=== PATIENT | female | born 1980 | race Hispanic/Latino ===

== ENCOUNTER 2016-10-15 10:56 | Emergency (ER) | payer MEDICAID ==
[2016-10-15 11:56] VITALS: BP 147/102
== END 2016-10-15 13:01 | disposition left against medical advice (07) ==
LOC: ED 10:56
DX: J02.9 Acute pharyngitis, unspecified (principal); R05 Cough; R51 Headache; F17.200 Nicotine dependence, unspecified, uncomplicated; Z53.21 Procedure and treatment not carried out due to patient leaving prior to being seen by health care provider

== ENCOUNTER 2016-11-07 15:32 | Emergency (ER) | payer MEDICAID ==
[2016-11-07 15:49] VITALS: BP 140/96
[2016-11-07] MEDS ORDERED: TETRACAINE 0.5% OU PRN (16:31)
[2016-11-07] MEDS ORDERED: FUL-GLO OP ONE (16:31)
--- NOTE | 2016-11-07 17:17 | Emergency Department Report ---
ED Eye Problem HPI - General Chief complaint: Eye Problems Stated complaint: EYE PAIN Time Seen by Provider: 11/07/16 17:15 Source: patient Mode of arrival: Ambulatory Limitations: No Limitations - History of Present Illness Initial comments: Patient here reports that she slept with her colored contacts last night. She said that she doesn't usually wear contact for vision. She said that when she woke up she took them out and she is having eye irritation to both eyes, sensitivity to light. She states she tried eyedrops without any relief. Reports pain is 10 out of 10 to both eyes. Denies any difficulty seeing. Past medical history is neuropathy dependent edema, GERD. Past surgical history is appendectomy and tubal ligation. She reports foreign body sensation with scratchy feeling side. She states that she took Tylenol without any relief. Tetanus vaccine is not up-to-date. MD chief complaint: eye pain, eye redness, eye injury -: Last night Onset Description: other (Contacts) Location: both eyes Place: home If Injury: other (Contacts) Eye Symptoms: burning, redness, pain, foreign body sensation, photophobia Severity: severe Severity scale (0 -10): 10 If Pain, Quality: burning, other (irritated) Consistency: constant Context: contact lens use Associated Symptoms: denies: headache, neck pain, nausea/vomiting, cough, rhinorrhea, shortness of breath Treatments Prior to Arrival: irrigated eye, OTC eye drops - Related Data Patient Tetanus UTD: No Previous Rx's Medication Instructions Recorded Last Taken Type Azithromycin [Zithromax Z-WILBER] 250 mg PO DAILY #6 tab 03/06/16 Unknown Rx Cetirizine HCl [ZyrTEC] 10 mg PO QDAY #30 capsule 03/06/16 Unknown Rx Fluticasone [Flonase] 1 spray NS QDAY #1 bottle 03/06/16 Unknown Rx Ibuprofen [Motrin] 800 mg PO Q8HR PRN #15 tablet 03/06/16 Unknown Rx predniSONE [Deltasone] 50 mg PO QDAY #5 tab 03/06/16 Unknown Rx Acetaminophen/Codeine [Tylenol 1 tab PO Q6H PRN #12 tab 11/07/16 Unknown Rx /Codeine # 3 tab] Gentamicin 0.3% Ophth Soln 2 drops OP Q4H #1 bottle 11/07/16 Unknown Rx Allergies Allergy/AdvReac Type Severity Reaction Status Date / Time No Known Allergies Allergy Verified 03/06/16 16:13 ED Review of Systems ROS: Stated complaint: EYE PAIN Other details as noted in HPI Comment: All other systems reviewed and negative Constitutional: no symptoms reported Eyes: eye pain, other (irritation from contacts). denies: eye discharge, vision change ENT: denies: ear pain, throat pain, dental pain, hearing loss, congestion Respiratory: no symptoms reported Cardiovascular: denies: chest pain, palpitations, edema, syncope Gastrointestinal: denies: abdominal pain, nausea, vomiting Musculoskeletal: denies: back pain, arthralgia Skin: denies: rash Neurological: denies: headache, numbness, paresthesias, confusion, abnormal gait , vertigo ED Past Medical Hx - Past Medical History Previous Medical History?: Yes Hx GERD: Yes Additional medical history: Neuropathy, dependent edema to lower extremities - Surgical History Past Surgical History?: Yes Hx Appendectomy: Yes Additional Surgical History: Tubal ligation - Family History Family history: hypertension - Social History Smoking Status: Current Every Day Smoker Substance Use Type: Alcohol Other Social History: Lives with family - Medications Home Medications: Home Medications Medication Instructions Recorded Confirmed Last Taken Type Azithromycin [Zithromax Z-WILBER] 250 mg PO DAILY #6 tab 03/06/16 Unknown Rx Cetirizine HCl [ZyrTEC] 10 mg PO QDAY #30 capsule 03/06/16 Unknown Rx Fluticasone [Flonase] 1 spray NS QDAY #1 bottle 03/06/16 Unknown Rx Ibuprofen [Motrin] 800 mg PO Q8HR PRN #15 tablet 03/06/16 Unknown Rx predniSONE [Deltasone] 50 mg PO QDAY #5 tab 03/06/16 Unknown Rx Acetaminophen/Codeine [Tylenol 1 tab PO Q6H PRN #12 tab 11/07/16 Unknown Rx /Codeine # 3 tab] Gentamicin 0.3% Ophth Soln 2 drops OP Q4H #1 bottle 11/07/16 Unknown Rx ED Physical Exam - General Limitations: No Limitations General appearance: alert, in no apparent distress - Head Head exam: Present: atraumatic, normocephalic, normal inspection - Eye Eye exam: Present: PERRL, EOMI, conjunctival injection (mild). Absent: normal appearance, scleral icterus, nystagmus, periorbital swelling Pupils: Present: normal accommodation - Expanded Eye Exam Expanded Eyelids: Normal Inspection: Right (Bilateral) Pupils: Regular, Round: Bilateral, Reactive: Bilateral Sclera/Conjunctival: Injection: Bilateral (mild) Anterior chamber: Normal Inspection: Bilateral Posterior chamber: Normal Inspection: Bilateral Visual acuity (R) = 20/: 40 Visual acuity (L) = 20/: 40 (20/25 both eyes) With correction: No - ENT ENT exam: Present: normal exam, normal orophraynx, mucous membranes moist - Neck Neck exam: Present: normal inspection, full ROM. Absent: tenderness, lymphadenopathy - Respiratory Respiratory exam: Present: normal lung sounds bilaterally. Absent: respiratory distress, chest wall tenderness - Cardiovascular Cardiovascular Exam: Present: normal rhythm, tachycardia, normal heart sounds - Extremities Exam Extremities exam: Present: normal inspection, full ROM, normal capillary refill. Absent: tenderness, pedal edema, joint swelling, calf tenderness - Back Exam Back exam: Present: normal inspection, full ROM. Absent: tenderness, rash noted - Neurological Exam Neurological exam: Present: alert, oriented X3, normal gait, reflexes normal. Absent: motor sensory deficit - Psychiatric Psychiatric exam: Present: normal affect, normal mood - Skin Skin exam: Present: warm, dry, intact, normal color. Absent: rash ED Course Vital Signs 11/07/16 11/07/16 15:46 18:05 Temperature 97.8 F Pulse Rate 103 H 84 Respiratory 16 Rate Blood Pressure 140/96 O2 Sat by Pulse 97 Oximetry - Reevaluation(s) Reevaluation #1: 11/07/16 18:13 Patient received boostrix 0.5 mls and Motrin 800 mg po . See procedure for zamarripa lamp testing. - Procedure Description Procedures done: Procedure: 2 drops tetracaine instilled in both eyes followed by fluorescein stain in and both eyes examined under Wood lamp patient with very minute corneal abrasion to both cornea. This vaccine updated. Both eyes flushed with normal saline. Patient voices relief of pain after tetracaine instilled. She had initial burning in that after a few seconds she said her pain is better. See vital signs record for visual acuity testing. Patient instructed to refrain from using contacts in her eye and that she will need to follow up with eye doctor. I instructed her to wear eyeglasses if needed and sunglasses when she is in the front to provide protection. ED Medical Decision Making - Medical Decision Making ED course: Patient and here reports that she has bilateral eye irritation and that she slept in her contact lenses which is not seen in but for cosmetic purposes. She said her eyes started hurting in and she took contacts out but it feels irritated and feels like foreign body sensation in her eyes. With lab testing done. Tetracaine 2 drops instilled in both eyes, fluorescein stain and both eyes visualized under Zamarripa lamp with small corneal abrasion to both eyes. has minimal redness to the sclera and conjunctiva. Visual acuity is 20/ 20 both eyes, 20/40 OD and 20/40 OS. Tetanus vaccine updated. Patient was given Boostrix 0.5 ml to update tetanus and Motrin 800 mg by mouth for eye pain. I discussed diagnosis and treatment plan the patient and told her that she will need to follow up with furnace combination analyst for further management of corneal abrasions to both eyes. Justice instructed to wear sunglasses when she is outside to prevent photophobia and to avoid putting contacts in her eyes. Patient discharged home with prescription for gentamicin ophthalmic drops and Tylenol # 3 . Patient with diagnosis of bilateral corneal abrasion Critical care attestation.: If time is entered above; I have spent that time in minutes in the direct care of this critically ill patient, excluding procedure time. ED Disposition Clinical Impression: Pain of both eyes Corneal abrasion due to contact lens Qualifiers: Laterality: bilateral Qualified Code(s): H18.823 - Corneal disorder due to contact lens, bilateral Disposition: DC-01 TO HOME OR SELFCARE Is pt being admited?: No Does the pt Need Aspirin: No Condition: Stable Instructions: Corneal Abrasion (ED) Additional Instructions: Follow-up with furnace combination analyst status post corneal abrasion. Please use antibiotic eyedrops as instructed Wear sunglasses when outdoors Please refrain from using contacts until you're cleared by your furnace combination analyst Prescriptions: Acetaminophen/Codeine [Tylenol /Codeine # 3 tab] 1 tab PO Q6H PRN #12 tab PRN Reason: Pain Gentamicin 0.3% Ophth Soln 2 drops OP Q4H #1 bottle Referrals: GIULIANA CROWE MD [Primary Care Provider] - 3-5 Days DEMETRIA YU MD [Staff Physician] - 09/19/17 Forms: Accompanied Note, Work/School Release Form(ED)
[2016-11-07] MEDS ORDERED: MOTRIN PO ONE (17:23)
[2016-11-07] MEDS ORDERED: BOOSTRIX IM ONE (17:23)
== END 2016-11-07 18:32 | disposition home or self-care (01) ==
LOC: ED 15:32
DX: H18.823 Corneal disorder due to contact lens, bilateral (principal); K21.9 Gastro-esophageal reflux disease without esophagitis; F17.200 Nicotine dependence, unspecified, uncomplicated; Z98.51 Tubal ligation status; Z90.49 Acquired absence of other specified parts of digestive tract
CPT/HCPCS: 90715; 99283

== ENCOUNTER 2017-01-24 01:14 | Emergency (ER) | payer MEDICAID ==
[2017-01-24 01:58] VITALS: BP 151/82
[2017-01-24] MEDS ORDERED: MOTRIN PO ONE (04:01)
[2017-01-24 04:28] LABS: Mean Corpuscular HGB Conc 30 % (30-34); Platelet Count 382 K/mm3 (140-440); Red Blood Count 4.65 M/mm3 (3.65-5.03); Red Cell Distribution Width 18.2 % (13.2-15.2); White Blood Count 10.3 K/mm3 (4.5-11.0)
--- NOTE | 2017-01-24 04:28 | XRay Report ---
FINAL REPORT PROCEDURE: XR CHEST ROUTINE 2V TECHNIQUE: PA and lateral chest radiographs were obtained. CPT 52863 HISTORY: Productive cough yellow, fever COMPARISON: No prior studies are available for comparison. FINDINGS: Heart: Normal. Mediastinum/Vessels: Normal. Lungs/Pleural space: Lungs are clear and expanded. There are no infiltrates, effusions or pneumothoraces.. Bony thorax: No acute osseous abnormality. Other: IMPRESSION: Normal examination.
[2017-01-24 04:36] LABS: Hematocrit 32.3 % (30.3-42.9); Mean Corpuscular Hemoglobin 21 pg (28-32); Mean Corpuscular Volume 69 fl (79-97)
[2017-01-24 04:37] LABS: Hemoglobin 9.7 gm/dl (10.1-14.3)
--- NOTE | 2017-01-24 04:40 | Emergency Department Report ---
- General Chief Complaint: Upper Respiratory Infection Stated Complaint: FEVER,COUGH,RIGHT LEG PAIN Time Seen by Provider: 01/24/17 03:20 Source: patient Mode of arrival: Ambulatory Limitations: No Limitations - History of Present Illness Initial Comments: 36-year-old female past medical history obesity, chronic lower extremity edema and neuropathy, smoker presents with complaint of 3 days of cough. Also complaining of one month of persistent right lower extremity thigh pain. Patient is awake alert and oriented 3 not appear to be in acute distress. No audible wheezing or stridor. Ambulatory without assistance. States that she has had persistent right upper thigh aching for 1 month. Denies any direct trauma denies any new exercises. States it is intermittent. Denies any fevers chills increased urinary frequency dysuria or foul-smelling urine. Denies any flank pain. States she has dry cough. Patient is a smoker. Onset/Timin -: month(s) Severity: moderate Severity scale (0 -10): 6 Quality: aching Consistency: intermittent Improves With: nothing Worsens With: nothing Associated Symptoms: cough - Related Data Previous Rx's Medication Instructions Recorded Last Taken Type Azithromycin [Zithromax Z-WILBER] 250 mg PO DAILY #6 tab 03/06/16 Unknown Rx Cetirizine HCl [ZyrTEC] 10 mg PO QDAY #30 capsule 03/06/16 Unknown Rx Fluticasone [Flonase] 1 spray NS QDAY #1 bottle 03/06/16 Unknown Rx Ibuprofen [Motrin] 800 mg PO Q8HR PRN #15 tablet 03/06/16 Unknown Rx predniSONE [Deltasone] 50 mg PO QDAY #5 tab 03/06/16 Unknown Rx Acetaminophen/Codeine [Tylenol 1 tab PO Q6H PRN #12 tab 11/07/16 Unknown Rx /Codeine # 3 tab] Gentamicin 0.3% Ophth Soln 2 drops OP Q4H #1 bottle 11/07/16 Unknown Rx ALBUTEROL Inhaler [ProAir HFA 2 puff IH QID PRN #1 inhalation 01/24/17 Unknown Rx Inhaler] Benzonatate [Tessalon Perles] 100 mg PO Q8HR PRN #30 capsule 01/24/17 Unknown Rx Naproxen [Naprosyn] 500 mg PO BID PRN #30 tablet 01/24/17 Unknown Rx Phenylephrine/Dm/Acetaminop/GG 10 ml PO Q6H PRN #1 liquid 01/24/17 Unknown Rx [Mucinex Klhd-Rdx-Svlieryqrg Lq] Allergies Allergy/AdvReac Type Severity Reaction Status Date / Time No Known Allergies Allergy Verified 03/06/16 16:13 ED Review of Systems ROS: Stated complaint: FEVER,COUGH,RIGHT LEG PAIN Other details as noted in HPI Constitutional: denies: chills, fever Eyes: denies: eye pain, eye discharge, vision change ENT: denies: ear pain, throat pain Respiratory: cough. denies: shortness of breath, wheezing Cardiovascular: denies: chest pain, palpitations Endocrine: no symptoms reported Gastrointestinal: denies: abdominal pain, nausea, diarrhea Genitourinary: denies: urgency, dysuria, discharge Musculoskeletal: as per HPI. denies: back pain, joint swelling, arthralgia Skin: denies: rash, lesions Neurological: denies: headache, weakness, paresthesias Psychiatric: denies: anxiety, depression Hematological/Lymphatic: denies: easy bleeding, easy bruising ED Past Medical Hx - Past Medical History Previous Medical History?: Yes Hx GERD: Yes Additional medical history: Neuropathy, dependent edema to lower extremities - Surgical History Past Surgical History?: Yes Hx Appendectomy: Yes Additional Surgical History: Tubal ligation - Social History Smoking Status: Current Every Day Smoker Substance Use Type: None - Medications Home Medications: Home Medications Medication Instructions Recorded Confirmed Last Taken Type Azithromycin [Zithromax Z-WILBER] 250 mg PO DAILY #6 tab 03/06/16 Unknown Rx Cetirizine HCl [ZyrTEC] 10 mg PO QDAY #30 capsule 03/06/16 Unknown Rx Fluticasone [Flonase] 1 spray NS QDAY #1 bottle 03/06/16 Unknown Rx Ibuprofen [Motrin] 800 mg PO Q8HR PRN #15 tablet 03/06/16 Unknown Rx predniSONE [Deltasone] 50 mg PO QDAY #5 tab 03/06/16 Unknown Rx Acetaminophen/Codeine [Tylenol 1 tab PO Q6H PRN #12 tab 11/07/16 Unknown Rx /Codeine # 3 tab] Gentamicin 0.3% Ophth Soln 2 drops OP Q4H #1 bottle 11/07/16 Unknown Rx ALBUTEROL Inhaler [ProAir HFA 2 puff IH QID PRN #1 inhalation 01/24/17 Unknown Rx Inhaler] Benzonatate [Tessalon Perles] 100 mg PO Q8HR PRN #30 capsule 01/24/17 Unknown Rx Naproxen [Naprosyn] 500 mg PO BID PRN #30 tablet 01/24/17 Unknown Rx Phenylephrine/Dm/Acetaminop/GG 10 ml PO Q6H PRN #1 liquid 01/24/17 Unknown Rx [Mucinex Igup-Kgt-Klwczowxbx Lq] ED Physical Exam - General Limitations: No Limitations General appearance: alert, in no apparent distress - Head Head exam: Present: atraumatic, normocephalic - Eye Eye exam: Present: normal appearance, PERRL, EOMI - ENT ENT exam: Present: normal exam, mucous membranes moist - Neck Neck exam: Present: normal inspection - Respiratory Respiratory exam: Present: normal lung sounds bilaterally. Absent: respiratory distress - Cardiovascular Cardiovascular Exam: Present: regular rate, normal rhythm. Absent: systolic murmur, diastolic murmur, rubs, gallop - GI/Abdominal GI/Abdominal exam: Present: soft, normal bowel sounds - Extremities Exam Extremities exam: Present: normal inspection - Expanded Lower Extremity Exam Right Upper Leg exam: Present: normal inspection (right thigh region soft palpation. No significant tenderness no erythema no palpable fluctuance no tenseness of skin.), full ROM Knee exam: Present: normal inspection, full ROM Lower Leg exam: Present: normal inspection, full ROM Ankle exam: Present: normal inspection, full ROM Foot/Toe exam: Present: normal inspection, full ROM Neuro vascular tendon exam: Present: no vascular compromise (distal dorsalis pedis and posterior tibial pulses are intact) Gait: Positive: observed and normal - Back Exam Back exam: Present: normal inspection - Neurological Exam Neurological exam: Present: alert, oriented X3, CN II-XII intact, normal gait - Psychiatric Psychiatric exam: Present: normal affect, normal mood - Skin Skin exam: Present: warm, dry, intact, normal color. Absent: rash ED Course Vital Signs 01/24/17 01:52 Temperature 98.3 F Pulse Rate 89 Blood Pressure 151/82 O2 Sat by Pulse 100 Oximetry ED Medical Decision Making - Lab Data Result diagrams: 01/24/17 04:06 01/24/17 04:06 - Medical Decision Making A/P: Chronic right thigh pain, upper respiratory infection 1-naproxen, Mucinex, Tessalon Perles when necessary 2-patient ambulatory, neurovascular exam right lower extremity within normal limits. Patient ambulatory without assistance. 3-BMP, CBC, d-dimer unremarkable. Chest x-ray unremarkable 4-follow-up with primary care and orthopedics. Critical care attestation.: If time is entered above; I have spent that time in minutes in the direct care of this critically ill patient, excluding procedure time. ED Disposition Clinical Impression: Muscle ache of extremity Upper respiratory infection Qualifiers: URI type: unspecified viral URI Qualified Code(s): J06.9 - Acute upper respiratory infection, unspecified; B97.89 - Other viral agents as the cause of diseases classified elsewhere; B97.89 - Other viral agents as the cause of diseases classified elsewhere Disposition: DC-01 TO HOME OR SELFCARE Is pt being admited?: No Does the pt Need Aspirin: No Condition: Stable Instructions: Musculoskeletal Pain (ED), Viral Syndrome (ED), Cold Symptoms (ED ), Upper Respiratory Infection (ED) Prescriptions: ALBUTEROL Inhaler [ProAir HFA Inhaler] 2 puff IH QID PRN #1 inhalation PRN Reason: Shortness Of Breath Benzonatate [Tessalon Perles] 100 mg PO Q8HR PRN #30 capsule PRN Reason: Cough Naproxen [Naprosyn] 500 mg PO BID PRN #30 tablet PRN Reason: Pain Phenylephrine/Dm/Acetaminop/GG [Mucinex Tzpo-Uoi-Srhqyphvqu Lq] 10 ml PO Q6H PRN #1 liquid PRN Reason: Cough Referrals: [facility] [Outside] - 3-5 Days [facility] [Outside] - 3-5 Days [facility] [Provider Group] - 3-5 Days Forms: Work/School Release Form(ED) Time of Disposition: 04:57
[2017-01-24 04:52] LABS: Anion Gap 15 mmol/L; BUN/Creatinine Ratio 14; Blood Urea Nitrogen 11 mg/dL (7-17); Calcium 8.7 mg/dL (8.4-10.2); Carbon Dioxide 26 mmol/L (22-30); Creatine Kinase 67 units/L (30-135); Glucose 81 mg/dL (65-100); Potassium 4.1 mmol/L (3.6-5.0); Sodium 140 mmol/L (137-145)
== END 2017-01-24 05:11 | disposition home or self-care (01) ==
LOC: ED 01:14
DX: J06.9 Acute upper respiratory infection, unspecified (principal); B97.89 Other viral agents as the cause of diseases classified elsewhere; M79.651 Pain in right thigh; K21.9 Gastro-esophageal reflux disease without esophagitis; G62.9 Polyneuropathy, unspecified; F17.200 Nicotine dependence, unspecified, uncomplicated
CPT/HCPCS: 36415; 71020; 80048; 82550; 85025; 85379; 87116; 87430; 99284

== ENCOUNTER 2018-04-28 21:25 | Emergency (ER) | payer MEDICAID, OTHER ==
[2018-04-29] MEDS ORDERED: TORADOL IM ONE (03:05)
[2018-04-29] MEDS ORDERED: NEURONTIN PO ONE (03:05)
--- NOTE | 2018-04-29 03:19 | Emergency Department Report ---
Upper Extremity - HPI Upper Extremity: Right Arm (pain and tingling ) Occurred When: >5 Days (2 weeks) Mechanism: Unsure Severity: moderate Symptoms: Yes Pain with Movement, Yes Numbness (tinglingl aching ), No Deformity, No Limited Range of Movement, No Weakness, No Swelling, No Bruising/Ecchymosis, No Laceration or Abrasion Other History: woke up with right arm and neck pain tingling aching intermittent numbness since no swelling no bruising no deformity no fall injury or trauma, <ORLIN CALLOWAY - Last Filed: 04/29/18 03:15> <JEREMIAH CHATMAN - Last Filed: 04/30/18 05:59> - HPI Chief Complaint: Extremity Injury, Upper Stated Complaint: RT ARM & SHOULDER NUMB Time Seen by Provider: 04/29/18 03:04 ED Review of Systems ROS: Stated complaint: RT ARM & SHOULDER NUMB Other details as noted in HPI Constitutional: denies: chills, fever Eyes: denies: eye pain, eye discharge, vision change ENT: denies: ear pain, throat pain Respiratory: denies: cough, shortness of breath, wheezing Cardiovascular: denies: chest pain, palpitations Endocrine: no symptoms reported Gastrointestinal: denies: abdominal pain, nausea, diarrhea Genitourinary: denies: urgency, dysuria, discharge Musculoskeletal: myalgia (right arm and shoulder) Skin: denies: rash, lesions Neurological: denies: headache, weakness, numbness, paresthesias, confusion, abnormal gait, vertigo Psychiatric: denies: anxiety, depression Hematological/Lymphatic: denies: easy bleeding, easy bruising <ORLIN CALLOWAY - Last Filed: 04/29/18 03:15> ROS: Stated complaint: RT ARM & SHOULDER NUMB Other details as noted in HPI <JEREMIAH CHATMAN - Last Filed: 04/30/18 05:59> ED Past Medical Hx - Past Medical History Hx GERD: Yes Additional medical history: Neuropathy, dependent edema to lower extremities - Surgical History Hx Appendectomy: Yes Additional Surgical History: Tubal ligation - Social History Smoking Status: Current Every Day Smoker <ORLIN CALLOWAY - Last Filed: 04/29/18 03:15> <JEREMIAH CHATMAN - Last Filed: 04/30/18 05:59> - Medications Home Medications: Home Medications Medication Instructions Recorded Confirmed Last Taken Type Azithromycin [Zithromax Z-WILBER] 250 mg PO DAILY #6 tab 03/06/16 Unknown Rx Cetirizine HCl [ZyrTEC] 10 mg PO QDAY #30 capsule 03/06/16 Unknown Rx Fluticasone [Flonase] 1 spray NS QDAY #1 bottle 03/06/16 Unknown Rx Ibuprofen [Motrin] 800 mg PO Q8HR PRN #15 tablet 03/06/16 Unknown Rx predniSONE [Deltasone] 50 mg PO QDAY #5 tab 03/06/16 Unknown Rx Acetaminophen/Codeine [Tylenol 1 tab PO Q6H PRN #12 tab 11/07/16 Unknown Rx /Codeine # 3 tab] Gentamicin 0.3% Ophth Soln 2 drops OP Q4H #1 bottle 11/07/16 Unknown Rx ALBUTEROL Inhaler (OR & NICU) 2 puff IH QID PRN #1 inhalation 01/24/17 Unknown Rx [ProAir HFA Inhaler] Benzonatate [Tessalon Perles] 100 mg PO Q8HR PRN #30 capsule 01/24/17 Unknown Rx Naproxen [Naprosyn] 500 mg PO BID PRN #30 tablet 01/24/17 Unknown Rx Phenylephrine/Dm/Acetaminop/GG 10 ml PO Q6H PRN #1 liquid 01/24/17 Unknown Rx [Mucinex Nqor-Tco-Pxmhfhtwvq Lq] Cyclobenzaprine [Flexeril] 10 mg PO TID PRN #30 tablet 04/29/18 Unknown Rx Gabapentin [Neurontin] 100 mg PO Q8HR #90 capsule 04/29/18 Unknown Rx Menthol/Camphor [[place] 1 applicatio TP QID PRN #1 tube 04/29/18 Unknown Rx Ointment] Naproxen 500 mg PO BID PRN #30 tablet 04/29/18 Unknown Rx Upper Extremity Exam - Exam General: Vital signs noted. No distress. Alert and acting appropriately. Head and Torso: No HEENT Abnormality, No Neck Tenderness (right lateral muscel tenderness to deep palpation), No Chest/Lungs Abnormality, No Abdominal Tenderness, No Back Tenderness Shoulder Exam: Yes Shoulder Tenderness (right posterior lateral muscle tenderness to deep palpation), Yes Normal Range of Motion in Shoulder, No Clavicle Tenderness, No Shoulder Deformity, No AC Joint Tenderness Arm Exam: Yes Arm/Humerus Tenderness (mild reproducible tenderness no bruisign no swelling no ecchymosis ), No Arm Deformity Elbow: Yes Normal Range of Motion in Elbow, No Elbow Tenderness, No Elbow Deformity Forearm: No Forearm Tenderness, No Forearm Deformity, No Pain with Pronation, No Pain with Supination Wrist: Yes Normal ROM in Wrist, No Wrist Tenderness, No Wrist Deformity, No Snuffbox Tenderness, No Pain with Axial Thumb Compression Hand: Yes Normal ROM in Digit(s), No Hand Tenderness, No Hand Deformity, No Digit Tenderness, No Digit(s) Deformity, No Tendon Dysfunction CMS Exam: Yes Normal Distal Pulses, Yes Normal Capillary Refill, Yes Normal Distal Sensation, No Broken Skin <ORLIN CALLOWAY - Last Filed: 04/29/18 03:15> - Exam General: Vital signs noted. No distress. Alert and acting appropriately. <JEREMIAH CHATMAN - Last Filed: 04/30/18 05:59> ED Course Vital Signs 04/28/18 21:50 Temperature 99.1 F Pulse Rate 92 H Respiratory 20 Rate Blood Pressure 123/70 O2 Sat by Pulse 97 Oximetry <ORLIN CALLOWAY - Last Filed: 04/29/18 03:15> Vital Signs 04/28/18 04/29/18 04/29/18 21:50 03:49 03:50 Temperature 99.1 F Pulse Rate 92 H 82 Respiratory 20 16 16 Rate Blood Pressure 123/70 Blood Pressure 151/83 [Left] O2 Sat by Pulse 97 98 Oximetry <JEREMIAH CHATMAN - Last Filed: 04/30/18 05:59> ED Medical Decision Making - Medical Decision Making This is right cervical versus arm radiculopathy plan NSAIDs muscle relaxants will try short run of gabapentin patient will follow up with primary care in 2-3 days neck and shoulder exercises and mashed therapy return to emergency should symptoms worsen there is no chest pain no shortness of breath there's no numbness no 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 <ORLIN CALLOWAY - Last Filed: 04/29/18 03:15> Critical care attestation.: If time is entered above; I have spent that time in minutes in the direct care of this critically ill patient, excluding procedure time. <JEREMIAH CHATMAN - Last Filed: 04/30/18 05:59> ED Disposition Is pt being admited?: No Does the pt Need Aspirin: No Time of Disposition: 03:29 <ORLIN CALLOWAY - Last Filed: 04/29/18 03:15> Is pt being admited?: No Does the pt Need Aspirin: No <JEREMIAH CHATMAN - Last Filed: 04/30/18 05:59> Clinical Impression: Radicular pain in right arm Disposition: DC-01 TO HOME OR SELFCARE Condition: Stable Instructions: Cervical Radiculopathy (ED), Musculoskeletal Pain (ED), Neck Exercises (GEN) Prescriptions: Cyclobenzaprine [Flexeril] 10 mg PO TID PRN #30 tablet PRN Reason: Muscle Spasm Naproxen 500 mg PO BID PRN #30 tablet PRN Reason: pain Gabapentin [Neurontin] 100 mg PO Q8HR #90 capsule Menthol/Camphor [[place] Ointment] 1 applicatio TP QID PRN #1 tube PRN Reason: pain Referrals: PRIMARY CARE,MD [Primary Care Provider] - 3-5 Days Forms: Work/School Release Form(ED)
[2018-04-29 03:50] VITALS: BP 151/83
== END 2018-04-29 03:49 | disposition home or self-care (01) ==
LOC: ED 21:25
DX: M79.601 Pain in right arm (principal); K21.9 Gastro-esophageal reflux disease without esophagitis
CPT/HCPCS: 96372; 99282; J1885

== ENCOUNTER 2018-08-16 00:31 | Emergency (ER) | payer BC, OTHER ==
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
== END 2018-08-16 02:35 | disposition home or self-care (01) ==
LOC: ED 00:31
DX: S00.01XA Abrasion of scalp, initial encounter (principal); M79.622 Pain in left upper arm; K21.9 Gastro-esophageal reflux disease without esophagitis; F17.200 Nicotine dependence, unspecified, uncomplicated; Z79.1 Long term (current) use of non-steroidal anti-inflammatories (NSAID); Z79.899 Other long term (current) drug therapy; Z90.49 Acquired absence of other specified parts of digestive tract; Z98.51 Tubal ligation status; Y04.8XXA Assault by other bodily force, initial encounter; Y93.89 Activity, other specified; Y92.89 Other specified places as the place of occurrence of the external cause; Y99.8 Other external cause status
CPT/HCPCS: 99282

== ENCOUNTER 2018-10-29 22:33 | Emergency (ER) | payer BC ==
[2018-10-30] MEDS ORDERED: ZOFRAN ODT PO ONE (00:35)
[2018-10-30] MEDS ORDERED: TYLENOL PO ONE (00:35)
[2018-10-30] MEDS ORDERED: ULTRAM PO ONE (00:35)
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
[2018-10-30 02:51] VITALS: BP 118/78
== END 2018-10-30 02:51 | disposition home or self-care (01) ==
LOC: ED 22:33
DX: S00.03XA Contusion of scalp, initial encounter (principal); S00.432A Contusion of left ear, initial encounter; K21.9 Gastro-esophageal reflux disease without esophagitis; E11.40 Type 2 diabetes mellitus with diabetic neuropathy, unspecified; F17.200 Nicotine dependence, unspecified, uncomplicated; Z79.4 Long term (current) use of insulin; Z98.890 Other specified postprocedural states; Z98.51 Tubal ligation status; Z79.899 Other long term (current) drug therapy; Z88.6 Allergy status to analgesic agent; Y04.8XXA Assault by other bodily force, initial encounter; Y93.89 Activity, other specified; Y92.89 Other specified places as the place of occurrence of the external cause; Y99.8 Other external cause status
CPT/HCPCS: 70450; 99283; Q0162

== ENCOUNTER 2019-03-29 23:53 | Emergency (ER) | payer BC ==
[2019-03-30] VITALS: BP 147/89
--- NOTE | 2019-03-30 01:22 | Emergency Department Report ---
ED General Adult HPI - General Chief complaint: Extremity Problem,Nontraumatic Stated complaint: LEGS SWELLING Time Seen by Provider: 03/30/19 01:04 Source: patient Mode of arrival: Ambulatory Limitations: No Limitations - History of Present Illness Initial comments: Ms. Hobson is a 38 y/o w/f wtih hx of peripheral neuropathy,obesity , GERD, and Dependent edema, who presents for bilat LE edema x 3 days with cough and sob, 5/10 aching, symptoms are exacerbated by activity, symptoms are relieved by nothing. pt denies PND but sob with activity. Noted bilat le swelling is worse wtih ambulation and being on fee for long period of time. States she was rx water pills, but has not taken them in over 1 year. Onset/Timin -: days(s) Location: lower extremity Radiation: non-radiation Severity scale (0 -10): 5 Quality: aching Consistency: constant Improves with: none Worsens with: movement, other (activity ) Associated Symptoms: cough, shortness of breath - Related Data Previous Rx's Medication Instructions Recorded Last Taken Type Azithromycin [Zithromax Z-WILBER] 250 mg PO DAILY #6 tab 03/06/16 Unknown Rx Cetirizine HCl [ZyrTEC] 10 mg PO QDAY #30 capsule 03/06/16 Unknown Rx Fluticasone [Flonase] 1 spray NS QDAY #1 bottle 03/06/16 Unknown Rx Ibuprofen [Motrin] 800 mg PO Q8HR PRN #15 tablet 03/06/16 Unknown Rx predniSONE [Deltasone] 50 mg PO QDAY #5 tab 03/06/16 Unknown Rx Acetaminophen/Codeine [Tylenol 1 tab PO Q6H PRN #12 tab 11/07/16 Unknown Rx /Codeine # 3 tab] Gentamicin 0.3% Ophth Soln 2 drops OP Q4H #1 bottle 11/07/16 Unknown Rx Albuterol INH(or & Nicu Only) 2 puff IH QID PRN #1 inhalation 01/24/17 Unknown Rx [ProAir HFA Inhaler] Benzonatate [Tessalon Perles] 100 mg PO Q8HR PRN #30 capsule 01/24/17 Unknown Rx Naproxen [Naprosyn] 500 mg PO BID PRN #30 tablet 01/24/17 Unknown Rx Phenylephrine/Dm/Acetaminop/GG 10 ml PO Q6H PRN #1 liquid 01/24/17 Unknown Rx [Mucinex Uicn-Rve-Tvnamerjjv Lq] Cyclobenzaprine [Flexeril] 10 mg PO TID PRN #30 tablet 04/29/18 Unknown Rx Gabapentin 100 mg PO Q8HR #90 capsule 04/29/18 Unknown Rx Menthol/Camphor [[place] 1 applicatio TP QID PRN #1 tube 04/29/18 Unknown Rx Ointment] Naproxen 500 mg PO BID PRN #30 tablet 04/29/18 Unknown Rx Ibuprofen [Motrin 800 MG tab] 800 mg PO Q8HR PRN #15 tablet 08/16/18 Unknown Rx Butalb/Acetamin/Caff 50-325-40 1 tab PO Q6HR PRN #15 tab 10/30/18 Unknown Rx [Fioricet 50-325-40] Cyclobenzaprine [Flexeril] 10 mg PO TID PRN #12 tablet 10/30/18 Unknown Rx Ofloxacin 0.3% [Floxin 0.3% Otic] 1 drop OT DAILY #5 ml 10/30/18 Unknown Rx Furosemide [Lasix TAB] 40 mg PO QDAY #3 tablet 03/30/19 Unknown Rx hydroCHLOROthiazide [HCTZ] 25 mg PO QDAY #30 tablet 03/30/19 Unknown Rx Allergies Allergy/AdvReac Type Severity Reaction Status Date / Time aspirin Allergy Unknown Verified 10/29/18 22:41 ED Review of Systems ROS: Stated complaint: LEGS SWELLING Other details as noted in HPI Constitutional: denies: chills, fever Eyes: denies: eye pain, eye discharge, vision change ENT: denies: ear pain, throat pain Respiratory: denies: cough, shortness of breath, wheezing Cardiovascular: denies: chest pain, palpitations Endocrine: no symptoms reported Gastrointestinal: denies: abdominal pain, nausea, diarrhea Genitourinary: denies: urgency, dysuria, discharge Musculoskeletal: other (bilat le edema ,mild erythema ). denies: back pain, joint swelling, arthralgia Skin: denies: rash, lesions Neurological: denies: headache, weakness, paresthesias Psychiatric: denies: anxiety, depression Hematological/Lymphatic: denies: easy bleeding, easy bruising ED Past Medical Hx - Past Medical History Previous Medical History?: Yes Hx GERD: Yes Additional medical history: Neuropathy, dependent edema to lower extremities,. Obesity - Surgical History Past Surgical History?: Yes Hx Appendectomy: Yes Additional Surgical History: Tubal ligation - Social History Smoking Status: Current Every Day Smoker Substance Use Type: None - Medications Home Medications: Home Medications Medication Instructions Recorded Confirmed Last Taken Type Azithromycin [Zithromax Z-WILBER] 250 mg PO DAILY #6 tab 03/06/16 Unknown Rx Cetirizine HCl [ZyrTEC] 10 mg PO QDAY #30 capsule 03/06/16 Unknown Rx Fluticasone [Flonase] 1 spray NS QDAY #1 bottle 03/06/16 Unknown Rx Ibuprofen [Motrin] 800 mg PO Q8HR PRN #15 tablet 03/06/16 Unknown Rx predniSONE [Deltasone] 50 mg PO QDAY #5 tab 03/06/16 Unknown Rx Acetaminophen/Codeine [Tylenol 1 tab PO Q6H PRN #12 tab 11/07/16 Unknown Rx /Codeine # 3 tab] Gentamicin 0.3% Ophth Soln 2 drops OP Q4H #1 bottle 11/07/16 Unknown Rx Albuterol INH(or & Nicu Only) 2 puff IH QID PRN #1 inhalation 01/24/17 Unknown Rx [ProAir HFA Inhaler] Benzonatate [Tessalon Perles] 100 mg PO Q8HR PRN #30 capsule 01/24/17 Unknown Rx Naproxen [Naprosyn] 500 mg PO BID PRN #30 tablet 01/24/17 Unknown Rx Phenylephrine/Dm/Acetaminop/GG 10 ml PO Q6H PRN #1 liquid 01/24/17 Unknown Rx [Mucinex Dqpe-Chc-Lsrjtjlpfn Lq] Cyclobenzaprine [Flexeril] 10 mg PO TID PRN #30 tablet 04/29/18 Unknown Rx Gabapentin 100 mg PO Q8HR #90 capsule 04/29/18 Unknown Rx Menthol/Camphor [[place] 1 applicatio TP QID PRN #1 tube 04/29/18 Unknown Rx Ointment] Naproxen 500 mg PO BID PRN #30 tablet 04/29/18 Unknown Rx Ibuprofen [Motrin 800 MG tab] 800 mg PO Q8HR PRN #15 tablet 08/16/18 Unknown Rx Butalb/Acetamin/Caff 50-325-40 1 tab PO Q6HR PRN #15 tab 10/30/18 Unknown Rx [Fioricet 50-325-40] Cyclobenzaprine [Flexeril] 10 mg PO TID PRN #12 tablet 10/30/18 Unknown Rx Ofloxacin 0.3% [Floxin 0.3% Otic] 1 drop OT DAILY #5 ml 10/30/18 Unknown Rx Furosemide [Lasix TAB] 40 mg PO QDAY #3 tablet 03/30/19 Unknown Rx hydroCHLOROthiazide [HCTZ] 25 mg PO QDAY #30 tablet 03/30/19 Unknown Rx ED Physical Exam - General Limitations: No Limitations General appearance: alert, in no apparent distress - Head Head exam: Present: atraumatic, normocephalic - Eye Eye exam: Present: normal appearance, PERRL, EOMI Pupils: Present: normal accommodation - ENT ENT exam: Present: mucous membranes moist - Neck Neck exam: Present: normal inspection, full ROM. Absent: tenderness, meningismus, lymphadenopathy, thyromegaly - Expanded Neck Exam Expanded Neck exam: Absent: tenderness, midline deformity, anterior neck swelling, thyroid mass, carotid bruit, tracheal deviation - Respiratory Respiratory exam: Present: normal lung sounds bilaterally. Absent: respiratory distress, wheezes, rales, rhonchi, stridor, chest wall tenderness, decreased breath sounds - Cardiovascular Cardiovascular Exam: Present: regular rate, normal rhythm, normal heart sounds. Absent: systolic murmur, diastolic murmur, rubs, gallop - GI/Abdominal GI/Abdominal exam: Present: soft, normal bowel sounds. Absent: distended, tenderness, bruit, hernia - Rectal Rectal exam: Present: deferred - Extremities Exam Extremities exam: Present: normal inspection, full ROM, tenderness (anterior lower extreme bilat pitting edema +2 ), normal capillary refill, pedal edema. Absent: calf tenderness - Back Exam Back exam: Present: normal inspection, full ROM. Absent: tenderness, CVA tenderness (R), CVA tenderness (L) - Neurological Exam Neurological exam: Present: alert, oriented X3, CN II-XII intact, normal gait, reflexes normal. Absent: motor sensory deficit - Psychiatric Psychiatric exam: Present: normal affect, normal mood - Skin Skin exam: Present: warm, dry, intact, normal color. Absent: rash ED Course Vital Signs 03/29/19 23:57 Temperature 98.4 F Pulse Rate 79 Respiratory 14 Rate Blood Pressure 147/89 O2 Sat by Pulse 100 Oximetry ED Medical Decision Making - Lab Data Result diagrams: 03/30/19 01:27 03/30/19 01:27 Labs 03/30/19 03/30/19 03/30/19 01:27 01:27 01:27 WBC 8.3 RBC 4.58 Hgb 11.0 Hct 34.4 MCV 75 L MCH 24 L MCHC 32 RDW 18.2 H Plt Count 367 Lymph % (Auto) 34.0 Reynolds % (Auto) 9.9 H Eos % (Auto) 2.1 Baso % (Auto) 1.4 Lymph # 2.8 Reynolds # 0.8 Eos # 0.2 Baso # 0.1 Seg Neutrophils % 52.6 Seg Neutrophils # 4.4 PT 12.5 INR 0.92 APTT 30.5 Sodium 140 Potassium 3.5 L Chloride 104.6 Carbon Dioxide 24 Anion Gap 15 BUN 14 Creatinine 0.8 Estimated GFR > 60 BUN/Creatinine Ratio 18 Glucose 119 H Calcium 8.6 Total Bilirubin 0.20 AST 23 ALT 18 Alkaline Phosphatase 92 Troponin T NT-Pro-B Natriuret Pep 27.84 Total Protein 7.1 Albumin 3.8 L Albumin/Globulin Ratio 1.2 Urine Color Urine Turbidity Urine pH Ur Specific [place] Urine Protein Urine Glucose (UA) Urine Ketones Urine Blood Urine Nitrite Urine Bilirubin Urine Urobilinogen Ur Leukocyte Esterase Urine WBC (Auto) Urine RBC (Auto) U Epithel Cells (Auto) Urine Bacteria (Auto) Urine Mucus Ur Yeast w Hyphae Urine HCG, Qual 03/30/19 03/30/19 01:31 Unknown WBC RBC Hgb Hct MCV MCH MCHC RDW Plt Count Lymph % (Auto) Reynolds % (Auto) Eos % (Auto) Baso % (Auto) Lymph # Reynolds # Eos # Baso # Seg Neutrophils % Seg Neutrophils # PT INR APTT Sodium Potassium Chloride Carbon Dioxide Anion Gap BUN Creatinine Estimated GFR BUN/Creatinine Ratio Glucose Calcium Total Bilirubin AST ALT Alkaline Phosphatase Troponin T < 0.010 NT-Pro-B Natriuret Pep Total Protein Albumin Albumin/Globulin Ratio Urine Color Yellow Urine Turbidity Cloudy Urine pH 6.0 Ur Specific [place] 1.025 Urine Protein <15 mg/dl Urine Glucose (UA) Neg Urine Ketones Neg Urine Blood Neg Urine Nitrite Neg Urine Bilirubin Neg Urine Urobilinogen < 2.0 Ur Leukocyte Esterase Tr Urine WBC (Auto) 4.0 Urine RBC (Auto) 4.0 U Epithel Cells (Auto) 16.0 H Urine Bacteria (Auto) 1+ Urine Mucus 3+ Ur Yeast w Hyphae Few Urine HCG, Qual Negative - Radiology Data Radiology results: report reviewed, image reviewed Findings [facility] [address] [place] [address] XRay Report Signed Patient: ABHILASH HOBSON MR#: [id number] : 1980 Acct:[id number] Age/Sex: 38 / F ADM Date: 03/29/19 Loc: ED Attending Dr: Ordering Physician: ORLIN CALLOWAY NP Date of Service: 03/30/19 Procedure(s): XR chest routine 2V Accession Number(s): [id number] cc: ORLIN CALLOWAY NP Fluoro Time In Minutes: CHEST 2 VIEWS INDICATION: bilat le edema cough. COMPARISON: 01/24/17 FINDINGS: Support devices: None. Heart: Within normal limits. Lungs/pleura: No acute air space or interstitial disease. No pneumothorax. Additional findings: None. IMPRESSION: 1. No acute findings. Signer Name: Jarod Dominguez MD Signed: 03/30/2019 2:30 AM Workstation Name: [id number] Transcribed By: JW Dictated By: Jarod Dominguez MD Electronically Authenticated By: Jarod Dominguez MD Signed Date/Time: 03/30/19229 DD/ 9 TD/TT: - Medical Decision Making cxr: normal no infiltrates no opacitie, BNP : normal, cbc: normal, cmp: normal, distal pulse +2, no calf tenderness, this is bilat dependent lower extreme edema, Plan: Lasix 40 mg po daily x 3k days, restarte HCTZ 25 mg po daily after completion of lasix , follow up with primary care doctor Dr Franco, in 2-3 days, pt verbalized agreement and understanding of discharge plan. Critical care attestation.: If time is entered above; I have spent that time in minutes in the direct care of this critically ill patient, excluding procedure time. ED Disposition Clinical Impression: Bilateral lower extremity edema Disposition: DC- TO HOME OR SELFCARE Is pt being admited?: No Does the pt Need Aspirin: No Condition: Stable Instructions: Leg Edema (ED) Prescriptions: hydroCHLOROthiazide [HCTZ] 25 mg PO QDAY #30 tablet Furosemide [Lasix TAB] 40 mg PO QDAY #3 tablet Referrals: VENKAT FRANCO MD [Referring] - 3-5 Days Forms: Work/School Release Form(ED) Time of Disposition: 03:51
[2019-03-30 01:40] LABS: Basophils # (Auto) 0.1 K/mm3 (0.0-0.1); Basophils % (Auto) 1.4 % (0.0-1.8); Eosinophils # (Auto) 0.2 K/mm3 (0.0-0.4); Eosinophils % (Auto) 2.1 % (0.0-4.3); Hematocrit 34.4 % (30.3-42.9); Lymphocytes # (Auto) 2.8 K/mm3 (1.2-5.4); Mean Corpuscular HGB Conc 32 % (30-34); Mean Corpuscular Volume 75 fl (79-97); Monocytes # (Auto) 0.8 K/mm3 (0.0-0.8); Monocytes % (Auto) 9.9 % (0.0-7.3); Platelet Count 367 K/mm3 (140-440); Red Blood Count 4.58 M/mm3 (3.65-5.03); Red Cell Distribution Width 18.2 % (13.2-15.2)
[2019-03-30 02:02] LABS: Alanine Aminotransferase 18 units/L (7-56); Albumin 3.8 g/dL (3.9-5); BUN/Creatinine Ratio 18; Blood Urea Nitrogen 14 mg/dL (7-17); Calcium 8.6 mg/dL (8.4-10.2); Hemolysis Index 5
[2019-03-30 02:16] LABS: INR 0.92 (0.87-1.13)
[2019-03-30 02:17] LABS: Partial Thromboplastin Time 30.5 Sec. (24.2-36.6)
--- NOTE | 2019-03-30 02:35 | XRay Report ---
CHEST 2 VIEWS INDICATION: bilat le edema cough. COMPARISON: 01/24/17 FINDINGS: Support devices: None. Heart: Within normal limits. Lungs/pleura: No acute air space or interstitial disease. No pneumothorax. Additional findings: None. IMPRESSION: 1. No acute findings. Signer Name: Jarod Dominguez MD Signed: 03/30/2019 2:30 AM Workstation Name: [id number]
[2019-03-30 02:36] LABS: Bacteria,Urine 1+ /HPF (Negative); Bilirubin,Urine NEG (Negative); Blood,Urine NEG (Negative); Color,Urine Yellow (Yellow); Mucus,Urine 3+ /HPF; Protein,Urine <15 mg/dL mg/dL (Negative); Urobilinogen,Urine < 2.0 mg/dL (<2.0)
[2019-03-30 02:48] LABS: HCG Qualitative,Urine Negative (Negative)
== END 2019-03-30 03:55 | disposition home or self-care (01) ==
LOC: ED 23:53
DX: R60.0 Localized edema (principal); K21.9 Gastro-esophageal reflux disease without esophagitis; F17.200 Nicotine dependence, unspecified, uncomplicated; Z90.49 Acquired absence of other specified parts of digestive tract; Z98.51 Tubal ligation status; Z79.1 Long term (current) use of non-steroidal anti-inflammatories (NSAID); Z79.899 Other long term (current) drug therapy
CPT/HCPCS: 36415; 71046; 80053; 81001; 81025; 83880; 84484; 85025; 85610; 85730; 93005; 93010